=== PATIENT | female | born 2005 | race Caucasian/White ===

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

== ENCOUNTER 2025-03-18 16:42 | Emergency (ER) | payer MEDICAID ==
[~2025-03-18] VITALS: Ht 177.8 cm; Wt 45.0 kg
[~2025-03-18 16:42] MED LIST changes: +T3 PO
[2025-03-18 16:46] VITALS: O2SAT 99
[2025-03-18 16:56] VITALS: BP 98/50; PULSE 81; RESP 14; TEMP 37.3; O2SAT 99
[2025-03-18 17:19] LABS: BASOPHILS % 1.1 % (0.0-2.0); EOSINOPHILS % 1.5 % (0.0-5.0); HEMOGLOBIN. 13.2 g/dL (12.0-16.0); LYMPHOCYTES % 42.6 % (20.0-50.0); MEAN CORPUSCULAR HEMOGLOBIN 27.9 pg (28.0-32.0); MEAN CORPUSCULAR HGB CONC 32.9 g/dL (31.0-37.0); MEAN CORPUSCULAR VOLUME 84.9 fL (81.0-99.0); MEAN PLATELET VOLUME 8.5 fl (7.4-10.4); MONOCYTES % 8.1 % (2.0-8.0); NEUTROPHILS % 46.7 % (40.0-76.0); PLATELET 218 x1000/uL (130-400); RED BLOOD CELL COUNT 4.71 mill/uL (4.2-5.4); RED CELL DISTRIBUTION WIDTH 14.7 % (11.6-14.6); WHITE BLOOD COUNT 4.1 x1000/uL (4.5-11.0)
[2025-03-18 17:28] LABS: CARBON DIOXIDE 25 mEq/L (21-32); CHLORIDE 108 mEq/L (98-107); SODIUM 140 mEq/L (136-145)
[2025-03-18 17:29] LABS: CALCIUM 10.2 mg/dL (8.7-10.4)
[2025-03-18 17:32] LABS: HCG SCREEN NEGATIVE
[2025-03-18 17:33] LABS: CREATININE 0.6 mg/dL (0.6-1.0)
[2025-03-18 17:34] LABS: GLUCOSE 70 mg/dL (70-105); UREA NITROGEN BLOOD 10 mg/dL (9-23)
[2025-03-18 17:35] LABS: ALANINE AMINOTRANSFERASE 9 IU/L (10-49); ASPARTATE AMINOTRANSFERASE 14 IU/L (<34)
[2025-03-18 17:36] LABS: BILIRUBIN DIRECT 0.3 mg/dL (<=3.0); BILIRUBIN TOTAL 1.1 mg/dL (0.1-1.0); PROTEIN TOTAL 6.8 g/dL (6.0-8.3)
[2025-03-18 17:48] LABS: CLARITY URINE CLEAR (CLEAR); COLOR URINE YELLOW (YELLOW); GLUCOSE URINE NEGATIVE (NEGATIVE); KETONES URINE NEGATIVE (NEGATIVE); LEUKOCYTE ESTERASE URINE NEGATIVE (NEGATIVE); NITRITE URINE NEGATIVE (NEGATIVE); OCCULT BLOOD URINE NEGATIVE (NEGATIVE); PROTEIN URINE NEGATIVE (NEGATIVE); SPECIFIC GRAVITY URINE 1.014 (1.005-1.030); UROBILINOGEN URINE 0.2 E.U./dL (0.2-1.0)
[2025-03-18] MEDS ORDERED: IBUP-2029 MT (19:28)
[2025-03-18] MEDS: IBUPROFEN 600MG TABLET PO NR (19:34)
== END 2025-03-18 19:40 | disposition home or self-care (01) ==
LOC: ER 16:42
DX: R10.32 Left lower quadrant pain (principal)
CPT/HCPCS: 36415; 76830; 76856; 80048; 80076; 81003; 84703; 85025; 86850; 86900; 99284